=== PATIENT | female | born 1960 | race Caucasian/White ===

== ENCOUNTER 2025-09-11 08:35 | Day surgery (SDC) | payer OTHER ==
[2025-09-07 15:35] VITALS: BMI 38.7
[2025-09-11] MEDS ORDERED: PROPOFOL 20 ML ONE (11:55)
[2025-09-11] MEDS ORDERED: SUCCINYLCHOLINE/SOD CL,ISO/PF 200 MG/10 ML SYRINGE FS ONE (11:55)
[2025-09-11] MEDS ORDERED: Lidocaine 1% PF 5 ML VIAL ONE (11:55)
[2025-09-11] MEDS ORDERED: Glycopyrrolate 0.2 MG/ML 5 ML SYRINGE ONE (12:49)
== END 2025-09-11 14:52 | disposition home or self-care (01) ==
LOC: CSHSDC 08:35
PROVIDERS: ATTEND Otolaryngology Otolaryngic Allergy
PROC: 3E0F7GC Introduction of Other Therapeutic Substance into Respiratory Tract, Via Natural or Artificial Opening (ICD-10-PCS; principal; 2025-09-11)
DX: J38.01 Paralysis of vocal cords and larynx, unilateral (principal); E04.1 Nontoxic single thyroid nodule; Z88.0 Allergy status to penicillin; Z88.1 Allergy status to other antibiotic agents
CPT/HCPCS: C1763; J0169; J1100; J2250; J2704